=== PATIENT | female | born 1995 | race Caucasian/White ===

== ENCOUNTER 2017-01-19 10:58 | Emergency (ER) | payer OTHER ==
[2017-01-19 11:08] VITALS: BP 120/70; PULSE 60; RESP 17; TEMP 98.2; O2SAT 98
[2017-01-19] MEDS ORDERED: OXYCODONE/APAP 5/325 TAB PO ONE (11:55)
[2017-01-19] MEDS ORDERED: ONDANSETRON DISINTEGRATING 4 MG TAB PO ONE (11:55)
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
== END 2017-01-19 12:23 | disposition home or self-care (01) ==
DX: S42.024A Nondisplaced fracture of shaft of right clavicle, initial encounter for closed fracture (principal); V18.0XXA Pedal cycle driver injured in noncollision transport accident in nontraffic accident, initial encounter; Y99.8 Other external cause status; Y93.55 Activity, bike riding
CPT/HCPCS: A4565